=== PATIENT | male | born 1950 | race Two or more races ===

== ENCOUNTER 2017-12-31 08:59 | Emergency (ER) | payer MEDICARE, OTHER ==
[2017-12-31] MEDS: NITROGLYCERIN (SL) 0.4 MG TAB SL (10:03)
[2017-12-31] MEDS: NITROGLYCERIN 2% 1 GM OINT PKT TD (10:03)
[2017-12-31] MEDS: ASPIRIN 81 MG TAB PO (10:03)
[2017-12-31 10:17] LABS: ADD MAN DIFF? NO
[2017-12-31 10:19] LABS: ABNORMAL IP MESSAGE 1; BASOPHILS % 0.3 % (0.0-2.0); EOSINOPHILS # 0.1 10^3/ul (0.0-0.5); EOSINOPHILS % 1.8 % (0.0-7.0); HEMATOCRIT 35.2 % (42.0-52.0); HEMOGLOBIN 12.4 g/dl (14.0-18.0); LYMPHOCYTES # 0.5 10^3/ul (0.8-2.9); LYMPHOCYTES % 12.6 % (15.0-51.0); MEAN CORPUSCULAR HEMOGLOBIN 28.3 pg (29.0-33.0); MEAN CORPUSCULAR HGB CONC 35.2 g/dl (32.0-37.0); MEAN CORPUSCULAR VOLUME 80.4 fl (82.0-101.0); MONOCYTE # 0.5 10^3/ul (0.3-0.9); MONOCYTES % 12.4 % (0.0-11.0); NEUTROPHIL # 2.9 10^3/ul (1.6-7.5); NEUTROPHILS % 72.6 % (39.0-77.0); PLATELET COUNT 122 10^3/UL (140-415); POSITIVE DIFF @See below; RED BLOOD COUNT 4.38 10^6/ul (4.70-6.10); RED CELL DISTRIBUTION WIDTH 13.9 % (11.5-14.5)
[2017-12-31 10:40] LABS: MEAN PLATELET VOLUME 10.6 fl (7.4-10.4)
[2017-12-31 10:56] LABS: ANION GAP 17 (8-16); BLOOD UREA NITROGEN 12 mg/dl (7-20); CALCIUM 9.3 mg/dl (8.4-10.2); CARBON DIOXIDE 23 mmol/L (21-31); CHLORIDE 107 mmol/L (97-110); CREATININE 0.77 mg/dl (0.61-1.24); GLUCOSE 244 mg/dl (70-220); POTASSIUM 3.9 mmol/L (3.5-5.1); SODIUM 143 mmol/L (135-144)
[2017-12-31 11:12] LABS: TROPONIN-I < 0.012 ng/ml (0.00-0.12)
[2017-12-31] MEDS: morphine 4 MG/ML VIAL IV (12:14)
[2017-12-31] MEDS ORDERED: ACETAMINOPHEN 325 MG TAB (12:31)
[2017-12-31 14:54] LABS: TROPONIN-I < 0.012 ng/ml (0.00-0.12)
== END 2017-12-31 15:59 | disposition home or self-care (01) ==
LOC: E/R 08:59
DX: R07.9 Chest pain, unspecified (principal); I10 Essential (primary) hypertension; Z79.82 Long term (current) use of aspirin
CPT/HCPCS: 36415; 71045; 80048; 84484; 85025; 93005; 96374; 99285-25

== ENCOUNTER 2018-01-03 08:20 | Emergency (ER) | payer MEDICARE, OTHER ==
[2018-01-03] MEDS: HYDROCODONE/APAP (5/325) TAB PO (08:49)
== END 2018-01-03 09:20 | disposition home or self-care (01) ==
LOC: FTE 08:20
DX: B02.8 Zoster with other complications (principal); I10 Essential (primary) hypertension; Z79.82 Long term (current) use of aspirin
CPT/HCPCS: 99284

== ENCOUNTER 2018-04-01 23:11 | Emergency (ER) | payer MEDICARE, OTHER ==
[2018-04-02] MEDS: SOD CHLORIDE 0.9% 500 ML IV (00:06)
[2018-04-02] MEDS: ONDANSETRON 4 MG INJ IV (00:06)
[2018-04-02] MEDS: LIDOCAINE/MYLANTA 40 ML BTL PO (00:06)
[2018-04-02 00:26] LABS: ADD MAN DIFF? NO
[2018-04-02 00:36] LABS: BASOPHILS % 0.3 % (0.0-2.0); EOSINOPHILS # 0.2 10^3/ul (0.0-0.5); EOSINOPHILS % 1.5 % (0.0-7.0); LYMPHOCYTES # 1.3 10^3/ul (0.8-2.9); LYMPHOCYTES % 12.2 % (15.0-51.0); MEAN CORPUSCULAR HEMOGLOBIN 29.5 pg (29.0-33.0); MEAN CORPUSCULAR VOLUME 84.2 fl (82.0-101.0); MEAN PLATELET VOLUME 11.3 fl (7.4-10.4); MONOCYTE # 0.9 10^3/ul (0.3-0.9); MONOCYTES % 8.6 % (0.0-11.0); NEUTROPHIL # 7.9 10^3/ul (1.6-7.5); PLATELET COUNT 170 10^3/UL (140-415); RED BLOOD COUNT 4.75 10^6/ul (4.70-6.10)
[2018-04-02 00:36] LABS: WHITE BLOOD COUNT 10.3 10^3/ul (4.8-10.8)
[2018-04-02 00:47] LABS: ALANINE AMINOTRANSFERASE 33 IU/L (13-69); ALBUMIN 4.5 g/dl (3.3-4.9); ALBUMIN/GLOBULIN RATIO 1.45; ALKALINE PHOSPHATASE 79 IU/L (42-121); ANION GAP 14 (8-16); ASPARTATE AMINO TRANSFERASE 26 IU/L (15-46); BILIRUBIN,INDIRECT 0.8 mg/dl (0-1.1); BILIRUBIN,TOTAL 0.8 mg/dl (0.2-1.3); BLOOD UREA NITROGEN 14 mg/dl (7-20); CALCIUM 9.9 mg/dl (8.4-10.2); CARBON DIOXIDE 26 mmol/L (21-31); CHLORIDE 105 mmol/L (97-110); CREATININE 0.77 mg/dl (0.61-1.24); GLUCOSE 140 mg/dl (70-220); LIPASE 140 U/L (23-300); POTASSIUM 3.9 mmol/L (3.5-5.1); SODIUM 141 mmol/L (135-144); TOTAL PROTEIN 7.6 g/dl (6.1-8.1)
[2018-04-02 00:59] LABS: TROPONIN-I < 0.012 ng/ml (0.000-0.120)
[2018-04-02 02:14] LABS: ADD UMIC NO; UR ASCORBIC ACID NEGATIVE (NEGATIVE); UR BILIRUBIN (Dip) NEGATIVE (NEGATIVE); UR BLOOD (Dip) NEGATIVE (NEGATIVE); UR CLARITY CLEAR (CLEAR); UR COLOR STRAW (YELLOW); UR GLUCOSE (Dip) NEGATIVE (NEGATIVE); UR KETONES (Dip) NEGATIVE (NEGATIVE); UR LEUKOCYTE ESTERASE (Dip) NEGATIVE Leu/ul (NEGATIVE); UR NITRITE (Dip) NEGATIVE (NEGATIVE); UR SPECIFIC GRAVITY (Dip) 1.008 (1.003-1.030); UR TOTAL PROTEIN (Dip) NEGATIVE (NEGATIVE); UR UROBILINOGEN (Dip) NEGATIVE (NEGATIVE)
== END 2018-04-02 02:27 | disposition home or self-care (01) ==
LOC: E/R 23:11
DX: R11.2 Nausea with vomiting, unspecified (principal); I10 Essential (primary) hypertension; Z79.82 Long term (current) use of aspirin
CPT/HCPCS: 36415; 71045; 80053; 81003; 83690; 84484; 85025; 93005; 96374; 99285-25